=== PATIENT | male | born 1995 | race Two or more races ===

== ENCOUNTER 2024-10-17 16:24 | Emergency (ER) | payer OTHER, SELFPAY ==
[2024-10-17 16:26] VITALS: BP 130/86; PULSE 102; RESP 16; TEMP 35.9; O2SAT 97
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
[2024-10-17] MEDS: ACETAMINOPHEN 500 MG TABLET 1000 MG PO (17:04)
[2024-10-17] MEDS: TETANUS/DIPHTH/PERTUSSIS 0.5 ML SYRINGE IM (17:07)
--- OUTSIDE RECORDS SUMMARY | 2024-10-17 17:40 | XMS_ITS | Clinical Summary ---
Author Organization [employer] Address [address] [place] [id number] Care Team Providers Care Premium Service Representative Name Role Phone Pcp, No Primary Care Provider Unavailabl e Allergies No known active allergies Medications cetirizine (ZYRTEC) 10 mg tablet Take 10 mg by mouth once daily. 2022 Active fluticasone (50 mcg per actuation) nasal solution (FLONASE) SPRAY 1 SPRAY INTO THE NOSTRIL(S) EVERY DAY 2022 Active Active Problems No known active problems Social History Tobacco Use Types Packs/Day Years Used Date Smoking Tobacco: Never Smokeless Tobacco: Never Tobacco Cessation:Counseling Given: Not Answered Social Connections Answer Date Recorded Do you often feel lonely or isolated from those around you? 0 07/19/2023 Financial Resource Strain Answer Date R ecorded Difficulty of Paying Living Expenses 3 06/06/2024 Difficulty of Paying Living Expenses Not on file 06/06/2024 Food Insecurity Answer Date Recorded Do you worry your food will run out before you are able to buy more? 1 07/19/2023 Transportation Needs Answer Date Record ed Does lack of transportation keep you from medica l appointments? 1 07/19/2023 Does lack of transportation keep you from work, meetings or getting things that you need? 1 07/19/2023 Housing Stability Answer Date Recorded What is your housing situation today? 1 07/19/2023 Interpersonal Safety Answer Date Record ed Are you being hit, kicked, p ushed or yelled at (see row info)? No 04/21/2024 Interpersonal Safety Abuse 12 - 18 Not on file 04/21/2024 Interpersonal Safety Ambulatory Vulnerability No t on file 04/21/2024 Utilities Answer Date Recorded Do you have trouble paying f or utilities (for example, heat, electricity, water, phone)? 1 07/19/2023 Sex and Gender Information Value Date Recorded Sex Assigned at Not on file Legal Sex Male 11:47 AM CDT Gender Identity Not on file Sexual Orientation Not on file Obstetrics History Last Filed Vital Signs Vital Sign Reading Time Taken Comments Blood Pressure 129/79 04/21/2024 7:15 PM HEAT TREATMENT TECHNICIAN Pulse 66 04/21/2024 7:15 PM HEAT TREATMENT TECHNICIAN Temperature 36.7 C (98.1 F) 04/21/2024 4:35 PM HEAT TREATMENT TECHNICIAN Respiratory Rate 17 04/21/2024 4:32 PM HEAT TREATMENT TECHNICIAN Oxygen Saturation 100% 04/21/2024 7:15 PM HEAT TREATMENT TECHNICIAN Inhaled Oxygen Concentration - - Weight 97.5 kg (215 lb) 04/21/2024 4:34 PM HEAT TREATMENT TECHNICIAN Height 170 cm (5' 6.93) 04/21/2024 4:35 PM HEAT TREATMENT TECHNICIAN Body Mass Index 33.75 04/21/2024 4:34 PM HEAT TREATMENT TECHNICIAN Plan of Treatment Health Maintenance Due Date Last Done Comments Tdap 12/25/2006 Depression screening for age 12+ 2007 HIV for age 15-65 12/25/2010 BMI (ht and wt on same day) for age 18+ 12/25/2013 Hepatitis C screening for ag e 18-79 12/25/2013 Hepatitis B series for 19+ ( 1 of 3 - 19+ 3-dose series) 12/25/2014 Tetanus booster 2015 COVID-19 vaccine series ( season) 2024 Influenza Vaccine (Season Ended) 2025 Pneumococcal series for age 6-49 Aged Out No longer eligible based on patient's age to complete this topic Care Teams Premium Service Representative Relationship Specialty Start Date End Date Pcp, No . PCP - General 07/19/23
[2024-10-17] MEDS: BACITRACIN OINTMENT BULK TUBE 1 APPLIC TOPICAL (17:46)
== END 2024-10-17 17:47 | disposition home or self-care (01) ==
LOC: ED 17:39
PROVIDERS: Emergency Provider Family Medicine
DX: T22.211A Burn of second degree of right forearm, initial encounter (principal); T23.171A Burn of first degree of right wrist, initial encounter; X10.1XXA Contact with hot food, initial encounter
CPT/HCPCS: 90471; 90715; 99282; 99283; A9270

== ENCOUNTER 2024-10-20 11:33 | Emergency (ER) | payer OTHER, SELFPAY ==
--- OUTSIDE RECORDS SUMMARY | 2024-10-20 11:36 | XMS_ITS | Clinical Summary ---
Author Organization [employer] [facility] Address [address] [place] [id number] Care Team Providers Care Cab Driver Name Role Phone Pcp, No Primary Care [...] Comments Blood Pressure 129/79 04/21/2024 7:15 PM COUNTER INTELLIGENCE TECHNICIAN Pulse 66 04/21/2024 7:15 PM COUNTER INTELLIGENCE TECHNICIAN Temperature 36.7 C (98.1 F) 04/21/2024 4:35 PM COUNTER INTELLIGENCE TECHNICIAN Respiratory Rate 17 04/21/2024 4:32 PM COUNTER INTELLIGENCE TECHNICIAN Oxygen Saturation 100% 04/21/2024 7:15 PM COUNTER INTELLIGENCE TECHNICIAN Inhaled Oxygen Concentration - - Weight 97.5 kg (215 lb) 04/21/2024 4:34 PM COUNTER INTELLIGENCE TECHNICIAN Height 170 cm (5' 6.93) 04/21/2024 4:35 PM COUNTER INTELLIGENCE TECHNICIAN Body Mass Index 33.75 04/21/2024 4:34 PM COUNTER INTELLIGENCE TECHNICIAN Plan of Treatment Health Maintenance Due [...] age to complete this topic Care Teams Cab Driver Relationship Specialty Start Date End Date Pcp, No . PCP - General 07/19/23
[2024-10-20 11:48] VITALS: BP 121/80; PULSE 80; RESP 18; TEMP 36.5; O2SAT 99
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
== END 2024-10-20 14:41 | disposition home or self-care (01) ==
PROVIDERS: Emergency Provider Family Medicine
DX: T22.211A Burn of second degree of right forearm, initial encounter (principal); Y99.0 Civilian activity done for income or pay
CPT/HCPCS: 99282; 99283